=== PATIENT | female | born 1980 | race Hispanic/Latino ===

== ENCOUNTER 2017-06-12 12:18 | Outpatient (CLI) | payer OTHER ==
[2017-06-12 12:58] LABS: BHCG - Serum POSITIVE (NEGATIVE); Pregs Control Background? CLEAR/WHITE (CLR/WHITE); Pregs Control Bar Appear? YES (CONTROL BAR)
== END 2017-06-12 12:19 | disposition home or self-care (01) ==
LOC: MADLAB 12:18
DX: Z00.00 Encounter for general adult medical examination without abnormal findings (principal)
CPT/HCPCS: 36415; 84703

== ENCOUNTER 2017-07-20 12:29 | Outpatient (CLI) | payer OTHER ==
[2017-07-20 13:37] LABS: BHCG - Serum Negative (NEGATIVE); Pregs Control Background? CLEAR/WHITE (CLR/WHITE); Pregs Control Bar Appear? YES (CONTROL BAR)
== END 2017-07-20 12:30 | disposition home or self-care (01) ==
LOC: MADLAB 12:29
DX: Z00.00 Encounter for general adult medical examination without abnormal findings (principal)
CPT/HCPCS: 36415; 84703

== ENCOUNTER 2018-01-22 11:58 | Emergency (ER) | payer BC, OTHER ==
[2018-01-22 12:31] LABS: Bilirubin Negative (Negative); Blood, Urine Negative (Negative); Glucose, Urine (Dipstick) Negative (Negative); Leukocyte Small (Negative); Nitrite Positive (Negative); Protein, Urine (Dipstick) Trace mg/dL (Neg-Trace); Specific Gravity, Urine 1.015 (1.005-1.030)
[2018-01-22 12:34] LABS: Pregnancy Test - Urine (BHCG) POSITIVE (Negative); Pregu Control Background? CLEAR/WHITE (CLR/WHITE); Pregu Control Bar Appear? YES (CONTROL BAR); Specific Gravity 1.015 (1.002-1.036)
[2018-01-22 12:34] LABS: Bacteria/HPF 2+ HPF (None Seen); Clarity Hazy (Clear); Other Microscopic Description C&S SET UP; RBC/HPF 0-3 HPF (0-3); Squamous Epithelial 0-3 HPF (0-3)
[2018-01-22] MEDS ORDERED: Cephalexin 250 MG CAP ONE (12:44)
== END 2018-01-22 12:50 | disposition home or self-care (01) ==
LOC: MADERS 11:58
DX: O23.42 Unspecified infection of urinary tract in pregnancy, second trimester (principal); O09.92 Supervision of high risk pregnancy, unspecified, second trimester
CPT/HCPCS: 81001; 81025; 87077; 87086; 87186; 99283